=== PATIENT | female | born 1980 | race Two or more races ===

== ENCOUNTER 2022-05-23 20:22 | Emergency (ER) | payer OTHER ==
[~2022-05-23] VITALS: Ht 154.9 cm; Wt 106.1 kg
[2022-05-23] MEDS ORDERED: INTEGRA PLUS C1 EACH (20:40)
[2022-05-23] MEDS ORDERED: LABETALOL HCL100 MG PO (20:40)
[2022-05-23] MEDS ORDERED: ADULT LOW DOSE81 M1 (20:44)
== END 2022-05-23 22:51 | disposition home or self-care (01) ==
LOC: ER 20:22
DX: O20.9 Hemorrhage in early pregnancy, unspecified (principal)

== ENCOUNTER 2022-08-23 12:52 | Outpatient (CLI) | payer OTHER ==
[~2022-08-23 12:52] MED LIST: ADULT LOW DOSE81 M1; INTEGRA PLUS C1 EACH; LABETALOL HCL100 MG PO
== END 2022-08-23 13:45 | disposition home or self-care (01) ==
LOC: NST 12:52
PROVIDERS: ATTEND Obstetrics & Gynecology Maternal & Fetal Medicine
DX: Z34.82 Encounter for supervision of other normal pregnancy, second trimester (principal)

== ENCOUNTER 2022-10-17 12:27 | Outpatient (CLI) | payer OTHER | END 2022-10-17 13:41 | disposition home or self-care (01) | LOC: NST 12:27 | PROVIDERS: ATTEND Obstetrics & Gynecology Gynecology | DX: Z34.83 Encounter for supervision of other normal pregnancy, third trimester (principal) ==

== ENCOUNTER 2022-10-31 14:41 | Outpatient (CLI) | payer OTHER | END 2022-10-31 15:21 | disposition home or self-care (01) | LOC: NST 14:41 | PROVIDERS: ATTEND Obstetrics & Gynecology Gynecology | DX: Z34.83 Encounter for supervision of other normal pregnancy, third trimester (principal) ==

== ENCOUNTER 2022-11-01 07:57 | Outpatient (CLI) | payer OTHER | END 2022-11-01 09:24 | disposition home or self-care (01) | LOC: NST 07:57 | PROVIDERS: ATTEND Obstetrics & Gynecology Maternal & Fetal Medicine | DX: Z34.83 Encounter for supervision of other normal pregnancy, third trimester (principal) ==

== ENCOUNTER 2022-11-08 09:41 | Outpatient (CLI) | payer OTHER | END 2022-11-08 10:42 | disposition home or self-care (01) | LOC: NST 09:41 | PROVIDERS: ATTEND Obstetrics & Gynecology Maternal & Fetal Medicine | DX: Z34.83 Encounter for supervision of other normal pregnancy, third trimester (principal) ==

== ENCOUNTER 2022-11-15 14:09 | Inpatient (IN) | payer OTHER ==
[~2022-11-15] VITALS: Ht 157.5 cm; Wt 2.7 kg
[2022-11-22] MEDS ORDERED: OXYC1TAB9 PO (12:19)
[2022-11-22] MEDS ORDERED: KETO10TA2 PO (12:20)
== END 2022-11-22 14:48 | disposition home or self-care (01) | DRG 788 ==
LOC: OB/GYN 11-20 07:00 → O/R 11-20 11:21 → OB/GYN 11-20 11:21
PROVIDERS: ADMIT Obstetrics & Gynecology; ATTEND Obstetrics & Gynecology
PROC: 4A1HXCZ Monitoring of Products of Conception, Cardiac Rate, External Approach (ICD-10-PCS; 2022-11-20)
PROC: 10D00Z1 Extraction of Products of Conception, Low, Open Approach (ICD-10-PCS; principal; 2022-11-20 10:50)
DX: O34.211 Maternal care for low transverse scar from previous cesarean delivery (principal); Z3A.37 37 weeks gestation of pregnancy; Z37.0 Single live birth; Z20.822 Contact with and (suspected) exposure to COVID-19

== ENCOUNTER → 2022-11-15 | Outpatient (CLI) | payer OTHER | END | disposition home or self-care (01) | LOC: NST 14:44 | PROVIDERS: ATTEND Obstetrics & Gynecology | DX: Z34.83 Encounter for supervision of other normal pregnancy, third trimester (principal) ==